=== PATIENT | male | born 1955 | race Caucasian/White ===

== ENCOUNTER → 2017-01-05 | Outpatient (CLI) | payer MEDICAID ==
[2017-01-05 08:39] LABS: Basophils # (A) 0.1 k/uL (0-0.2); Basophils % (A) 0 %; CH 32.4; CHCM 33.4; Eosinophils # (A) 0.1 k/uL (0-0.7); Eosinophils % (A) 1 %; HCT 48.7 % (39.0-53.0); HGB 15.9 gm/dL (13.0-17.5); Luc # (Auto) 0.12; Luc % (Auto) 1; Lymphocytes # (A) 0.7 k/uL (1.0-4.8); Lymphocytes % (A) 7 %; MCH 31.8 pg (25.0-35.0); MCHC 32.6 g/dL (31.0-37.0); MCV 97.3 fL (80.0-100.0); Mean Platelet Volume 7.2; Monocytes # (A) 0.3 k/uL (0-1.0); Monocytes % (A) 3 %; Neutrophils % (A) 88 %; RBC 5.01 m/uL (4.30-5.90); RDW 12.9 % (11.5-15.5); WBC 10.3 k/uL (3.8-10.6); WBC (Perox) 10.58
[2017-01-05 08:51] LABS: ALT 40 U/L (21-72); AST 27 U/L (17-59); Alkaline Phosphatase 83 U/L (38-126); Anion Gap 12 mmol/L; Blood Urea Nitrogen 13 mg/dL (9-20); Calcium 9.8 mg/dL (8.4-10.2); Carbon Dioxide 25 mmol/L (22-30); Chloride 102 mmol/L (98-107); Cholesterol 219 mg/dL (<200); Glucose 158 mg/dL (74-99); HDL Cholesterol 80 mg/dL (40-60); Non-African American GFR(MDRD) >60 (>60 ml/min/1.73 sqM); Potassium 4.3 mmol/L (3.5-5.1); Sodium 139 mmol/L (137-145); Total Bilirubin 0.7 mg/dL (0.2-1.3); Total Protein 7.2 g/dL (6.3-8.2); Triglycerides 93 mg/dL (<150)
== END | disposition home or self-care (01) ==
LOC: LABWHC1 08:00
PROVIDERS: ATTEND Physician Assistant Medical
DX: I10 Essential (primary) hypertension (principal); R06.2 Wheezing; Z72.0 Tobacco use; Z71.6 Tobacco abuse counseling; Z12.5 Encounter for screening for malignant neoplasm of prostate
CPT/HCPCS: 36415; 80053; 80061; 84153; 84443; 85025

== ENCOUNTER → 2017-11-30 | Outpatient (CLI) | payer MEDICAID ==
[2017-11-30 08:16] LABS: Basophils % (A) 0 %; Eosinophils # (A) 0.2 k/uL (0-0.7); Eosinophils % (A) 2 %; HCT 45.3 % (39.0-53.0); HGB 14.7 gm/dL (13.0-17.5); Lymphocytes # (A) 1.2 k/uL (1.0-4.8); Lymphocytes % (A) 15 %; MCH 31.7 pg (25.0-35.0); MCHC 32.3 g/dL (31.0-37.0); Mean Platelet Volume 6.7; Monocytes # (A) 0.4 k/uL (0-1.0); Monocytes % (A) 5 %; Neutrophils # (A) 5.9 k/uL (1.3-7.7); Neutrophils % (A) 76 %; Platelet Count 244 k/uL (150-450); RBC 4.62 m/uL (4.30-5.90); RDW 13.4 % (11.5-15.5); WBC 7.8 k/uL (3.8-10.6)
[2017-11-30 08:22] LABS: ALT 60 U/L (21-72); AST 27 U/L (17-59); Albumin 4.1 g/dL (3.5-5.0); Alkaline Phosphatase 75 U/L (38-126); Anion Gap 9 mmol/L; Blood Urea Nitrogen 20 mg/dL (9-20); Calcium 9.8 mg/dL (8.4-10.2); Carbon Dioxide 28 mmol/L (22-30); Chloride 101 mmol/L (98-107); Glucose 108 mg/dL (74-99); Potassium 4.3 mmol/L (3.5-5.1); Sodium 138 mmol/L (137-145); Total Bilirubin 0.4 mg/dL (0.2-1.3); Total Protein 6.5 g/dL (6.3-8.2)
== END | disposition home or self-care (01) ==
LOC: LABWHC1 07:24
PROVIDERS: ATTEND Internal Medicine Infectious Disease
DX: L03.90 Cellulitis, unspecified (principal)
CPT/HCPCS: 36415; 80053; 85025

== ENCOUNTER 2019-01-10 03:23 | Emergency (ER) | payer MEDICAID ==
[2019-01-10 03:33] VITALS: BP 186/82; TEMP 98.2
[2019-01-10] MEDS ORDERED: ALBUTEROL NEBULIZED 2.5 MG/3 ML INHALATION STA (03:46)
[2019-01-10] MEDS ORDERED: IPRATROPIUM-ALBUTEROL 3 ML NEB INHALATION STA (03:46)
--- NOTE | 2019-01-10 04:24 | XR ---
EXAM: XR Chest, 2 Views CLINICAL HISTORY: TECHNIQUE: Frontal and lateral views of the chest. COMPARISON: No relevant prior studies available. FINDINGS: Lungs: Hyperinflated lungs suggesting COPD. Patchy airspace opacity seen within the lower lungs which may be inflammatory or infectious. Pleural space: Unremarkable. No pneumothorax. Heart: Unremarkable. No cardiomegaly. Mediastinum: Unremarkable. Bones/joints: Degenerative changes of the osseous structures. IMPRESSION: Hyperinflated lungs suggesting COPD. Patchy airspace opacity seen within the lower lungs which may be inflammatory or infectious.
[2019-01-10 04:28] VITALS: RESP 18
[2019-01-10 04:38] VITALS: PULSE 82
[2019-01-10] MEDS ORDERED: AZITHROMYCIN 500 MG TAB PO STA (04:38)
[2019-01-10] MEDS ORDERED: predniSONE 20 MG TAB PO STA (04:40)
--- NOTE | 2019-01-10 04:40 | ED ---
URI HPI - General Chief Complaint: Upper Respiratory Infection Stated Complaint: SOB Time Seen by Provider: 01/10/19 03:39 Source: patient Mode of arrival: ambulatory Limitations: no limitations - History of Present Illness Initial Comments: This patient is a 63-year-old man presenting with cough, wheezing, and some mild dyspnea that is been getting progressively worse over the past number days. No fever or chills. He states the cough is largely nonproductive though occasionally some white to yellowish sputum. No chest pains. No change in urination. No leg pain or swelling. No change in bowel movements. MD Complaint: cough -: days(s) Severity: mild Consistency: constant Improves With: nothing Worsens With: activity Associated Symptoms: cough, shortness of breath - Related Data Home Medications Medication Instructions Recorded Confirmed Atenolol 100 mg PO DAILY 01/10/19 01/10/19 Losartan Potassium 100 mg PO 01/10/19 cloNIDine HCL [Catapres] 0.2 mg PO BID 01/10/19 01/10/19 hydrALAZINE HCL [Apresoline] 50 mg PO BID 01/10/19 01/10/19 Previous Rx's Medication Instructions Recorded Albuterol Inhaler [Ventolin Hfa 1 - 2 puff INHALATION Q6HR PRN #1 01/10/19 Inhaler] inhaler Azithromycin [Zithromax Z-pack] 250 mg PO DIRECTED #6 tab 01/10/19 predniSONE 60 mg PO DAILY #30 tab 01/10/19 Allergies Allergy/AdvReac Type Severity Reaction Status Date / Time No Known Allergies Allergy Verified 01/10/19 03:33 Review of Systems ROS Statement: Those systems with pertinent positive or pertinent negative responses have been documented in the HPI. ROS Other: All systems not noted in ROS Statement are negative. Constitutional: Denies: fever, chills, weakness Respiratory: Reports: cough, dyspnea, wheezes. Denies: hemoptysis Cardiovascular: Denies: chest pain, palpitations, edema, syncope Gastrointestinal: Denies: abdominal pain, melena, hematochezia Genitourinary: Denies: dysuria, hematuria Musculoskeletal: Denies: back pain Skin: Denies: rash Neurological: Denies: headache, weakness, numbness Past Medical History Past Medical History: Hypertension History of Any Multi-Drug Resistant Organisms: None Reported Past Surgical History: Orthopedic Surgery Additional Past Surgical History / Comment(s): R wrist sx Past Psychological History: No Psychological Hx Reported Smoking Status: Current every day smoker Past Alcohol Use History: Daily Past Drug Use History: None Reported General Exam Limitations: no limitations General appearance: alert, in no apparent distress Head exam: Present: atraumatic, normocephalic Eye exam: Present: normal appearance. Absent: scleral icterus, conjunctival injection Neck exam: Present: normal inspection Respiratory exam: Present: normal lung sounds bilaterally, wheezes. Absent: respiratory distress, rales, rhonchi, stridor Cardiovascular Exam: Present: regular rate, normal rhythm, normal heart sounds. Absent: systolic murmur, diastolic murmur, rubs, gallop GI/Abdominal exam: Present: soft. Absent: distended, tenderness, guarding, rebound, rigid Extremities exam: Present: normal inspection, normal capillary refill. Absent: pedal edema, calf tenderness Back exam: Present: normal inspection. Absent: CVA tenderness (R), CVA tenderness (L) Neurological exam: Present: alert Skin exam: Present: warm, dry, intact, normal color. Absent: rash Course Vital Signs 01/10/19 01/10/19 01/10/19 03:28 04:00 04:15 Temperature 98.2 F Pulse Rate 80 90 Respiratory 20 18 20 Rate Blood Pressure 186/82 O2 Sat by Pulse 97 Oximetry 01/10/19 01/10/19 04:27 04:37 Temperature Pulse Rate 92 82 Respiratory 18 18 Rate Blood Pressure O2 Sat by Pulse 96 Oximetry Disposition Clinical Impression: COPD exacerbation, Pneumonia Disposition: HOME SELF-CARE Condition: Fair Instructions (If sedation given, give patient instructions): COPD (Chronic Obstructive Pulmonary Disease) (ED), Pneumonia (ED) Prescriptions: Albuterol Inhaler [Ventolin Hfa Inhaler] 1 - 2 puff INHALATION Q6HR PRN #1 inhaler PRN Reason: Wheezing Azithromycin [Zithromax Z-pack] 250 mg PO DIRECTED #6 tab predniSONE 60 mg PO DAILY #30 tab Is patient prescribed a controlled substance at d/c from ED?: No Referrals: See Moy DO [Primary Care Provider] - 1-2 days
== END 2019-01-10 05:09 | disposition home or self-care (01) ==
LOC: EC 03:23
DX: J44.0 Chronic obstructive pulmonary disease with (acute) lower respiratory infection (principal); J44.1 Chronic obstructive pulmonary disease with (acute) exacerbation; J18.9 Pneumonia, unspecified organism; I10 Essential (primary) hypertension; F17.200 Nicotine dependence, unspecified, uncomplicated; Z79.899 Other long term (current) drug therapy
CPT/HCPCS: 94640; 71046; 99285; 96374; J0696; J7512

== ENCOUNTER → 2019-04-13 | Outpatient (CLI) | payer MEDICAID ==
[2019-04-13 10:08] LABS: Basophils % (A) 1 %; Eosinophils # (A) 0.3 k/uL (0-0.7); Eosinophils % (A) 4 %; HCT 45.3 % (39.0-53.0); HGB 14.3 gm/dL (13.0-17.5); Lymphocytes # (A) 1.7 k/uL (1.0-4.8); Lymphocytes % (A) 25 %; MCH 31.2 pg (25.0-35.0); MCHC 31.5 g/dL (31.0-37.0); MCV 98.9 fL (80.0-100.0); Mean Platelet Volume 6.8; Monocytes # (A) 0.4 k/uL (0-1.0); Monocytes % (A) 6 %; Neutrophils # (A) 4.2 k/uL (1.3-7.7); Neutrophils % (A) 63 %; Platelet Count 256 k/uL (150-450); RBC 4.58 m/uL (4.30-5.90); RDW 13.5 % (11.5-15.5); WBC 6.7 k/uL (3.8-10.6)
[2019-04-13 16:08] LABS: Albumin 4.4 g/dL (3.80-4.90); Albumin/Globulin Ratio 2.32 (1.60-3.17); Anion Gap 5.6 mmol/L (4.00-12.00); Calcium 9.3 mg/dL (8.7-10.3); Carbon Dioxide 26.4 mmol/L (21.6-31.8); Globulin 1.9 g/dL (1.6-3.3); LDL Cholesterol,Calculated 122.8 mg/dL (0.0-131.0); Potassium 5.1 mmol/L (3.5-5.5); Total Bilirubin 0.5 mg/dL (0.2-1.2); Total Protein 6.3 g/dL (6.2-8.2); VLDL Calculation 20.2 mg/dL (5.00-40.00)
== END | disposition home or self-care (01) ==
LOC: LABWHC1 09:32
PROVIDERS: ATTEND Family Medicine
DX: E78.2 Mixed hyperlipidemia (principal)
CPT/HCPCS: 36415; 80053; 80061; 82550; 84443; 85025

== ENCOUNTER 2019-10-09 12:38 | Day surgery (SDC) | payer MEDICAID ==
--- NOTE | 2019-10-08 19:38 | HP ---
HISTORY AND PHYSICAL Mr. Bardales came to the office, referred by Dr. Tito Holliday, for discoloration of the right foot big toe. This patient had some ingrowing nail done and the patient developed discoloration of the right foot big toe for the past 2 weeks. Patient has history of claudication. No rest pain. MEDICAL HISTORY: History of hypertension. No history of diabetes. PERSONAL HISTORY: History of smoking. PHYSICAL EXAMINATION: NECK: Supple. CHEST: Clear on auscultation. First and second sounds are normal. ABDOMEN: Soft, nontender. VASCULAR EXAMINATION: Femorals are 2+. Right foot: patient has posterior tibial, dorsalis pedis by the Doppler. The right big toe had discoloration of the big toe. The patient had a noninvasive study which showed infrapopliteal occlusive disease. PLAN: Aortogram with runoff. Risks and complications were discussed. MMODL / EUSEBION: [id number] /
[~2019-10-09 12:38] MED LIST: ALPRAZolam 0.25 MG TAB PO PRN; ALPRAZolam 0.5 MG TAB PO PRN; ASPIRIN 325 MG TAB PO STA; SODIUM CHLORIDE 0.9% 1,000 ML in EMPTY BAG 1 BAG IV ONE; ZOLPIDEM 5 MG TAB PO PRN
[2019-10-09 13:07] LABS: Basophils % (A) 0 %; Eosinophils # (A) 0.1 k/uL (0-0.7); Eosinophils % (A) 1 %; HCT 44.6 % (39.0-53.0); HGB 15.2 gm/dL (13.0-17.5); Lymphocytes # (A) 1.1 k/uL (1.0-4.8); Lymphocytes % (A) 10 %; MCH 33.6 pg (25.0-35.0); MCHC 34.1 g/dL (31.0-37.0); MCV 98.6 fL (80.0-100.0); Mean Platelet Volume 5.7; Monocytes # (A) 0.3 k/uL (0-1.0); Monocytes % (A) 2 %; Neutrophils # (A) 10.1 k/uL (1.3-7.7); Neutrophils % (A) 86 %; Platelet Count 287 k/uL (150-450); RBC 4.52 m/uL (4.30-5.90); RDW 12.6 % (11.5-15.5); WBC 11.8 k/uL (3.8-10.6)
[2019-10-09 13:17] LABS: Calcium 9.6 mg/dL (8.4-10.2); Potassium 4.3 mmol/L (3.5-5.1)
[2019-10-09] MEDS ORDERED: LIDOCAINE 1% INJ 10MG/ML (20 ML MDV) SQ ONE (13:22)
[2019-10-09] MEDS: MIDAZOLAM 2 MG/2 ML VIAL IV ONE ×2 (13:22→13:39)
[2019-10-09] MEDS ORDERED: IOPAMIDOL-250 100ML BTL INTRAARTER ONE (13:39)
[2019-10-09] MEDS ORDERED: hydrALAZINE HCL 20 MG/ML 1 ML VIAL IV ONE (13:39)
[2019-10-09] MEDS ORDERED: IOPAMIDOL-250 50ML BTL INTRAARTER ONE (13:40)
[2019-10-09] MEDS ORDERED: hydrALAZINE HCL 20 MG/ML 1 ML VIAL ONE (13:59)
[2019-10-09] MEDS ORDERED: ENALAPRILAT 1.25 MG/ML 1 ML VIAL ONE (13:59)
[2019-10-09] MEDS ORDERED: HYDROmorphone 1 MG/ML 1 ML SYRINGE ONE ×2 (14:09→14:33)
[2019-10-09] MEDS ORDERED: HYDROmorphone 1 MG/ML 1 ML SYRINGE IVP PRN (14:34)
[2019-10-09] MEDS ORDERED: hydrALAZINE HCL 20 MG/ML 1 ML VIAL IVP PRN (14:38)
[2019-10-09] MEDS ORDERED: ENALAPRILAT 1.25 MG/ML 1 ML VIAL IVP PRN (14:38)
[2019-10-09] MEDS ORDERED: ACETAMINOPHEN TAB 500 MG TAB PO PRN (15:17)
[2019-10-09] MEDS ORDERED: HYDROcodone/APAP 5-325MG 1 EACH TAB PO PRN (15:17)
[2019-10-09 15:58] VITALS: BMI 26.6
[2019-10-09] MEDS: hydrALAZINE HCL 50 MG TAB PO SCH (20:48)
[2019-10-09] MEDS: cloNIDine HCL 0.2 MG TAB PO SCH (20:48)
[2019-10-09] MEDS ORDERED: hydrALAZINE HCL 50 MG TAB PO SCH (21:00)
--- NOTE | 2019-10-09 22:07 | HP ---
HISTORY AND PHYSICAL CHIEF COMPLAINT: Hypertension. HISTORY OF PRESENT ILLNESS: This 64-year-old gentleman with a past medical history of hypertension, history of DJD, being followed Dr. See Moy in the outpatient setting, had discoloration and possible peripheral vascular disease of the right foot and Dr. Cameron saw the patient, referred the patient to Dr. Muñoz. Dr. Muñoz performed an aortogram with runoff and because of peripheral vascular disease, surgery is being tentatively planned next week by Dr. Muñoz. Blood pressure elevated. No chest pain. No palpitations. No fever. PAST MEDICAL HISTORY: History of hypertension, history of DJD, history of nicotine dependence. MEDICATIONS: Prior to admission, Apresoline 50 mg p.o. b.i.d., losartan 100 mg p.o. daily, atenolol 100 mg p.o. daily, clonidine 0.2 b.i.d. ALLERGIES: None. FAMILY HISTORY: No history of heart disease or strokes in the family. SOCIAL HISTORY: History of smoking. History of alcohol occasionally. REVIEW OF SYSTEMS: ENT: No diminished vision. No diminished hearing. CARDIOVASCULAR: No angina or palpitations. RESPIRATIONS: Occasional cough. GI no nausea or vomiting. no dysuria or hematuria. NERVOUS SYSTEM: No numbness or weakness. ALLERGY/IMMUNOLOGY: No asthma or hayfever. MUSCULOSKELETAL as mentioned earlier. HEMATOLOGY/ONCOLOGY: No history of anemia. ENDOCRINE: No history of diabetes or hypothyroidism. CONSTITUTIONAL: As mentioned earlier. DERMATOLOGY mentioned earlier RHEUMATOLOGY negative. PSYCHIATRY: Negative. PHYSICAL EXAMINATION: Alert and oriented times three. Pulse 64. Blood pressure 181/82, respiration 18, temperature 98.1, pulse ox 98% on room air. HEENT is conjunctivae normal. NECK: No JVD. CARDIOVASCULAR: S1, S2 muffled. RESPIRATORY: Breath sounds diminished in the bases. No rhonchi. No crackles. ABDOMEN: Soft, nontender. No mass palpable. LEGS: No edema. No swelling. NERVOUS SYSTEM: Higher functions as mentioned earlier. Moves all four limbs. No focal deficits. LYMPHATICS: No lymph nodes palpable in the neck, axillae or groin. SKIN: No ulcer, no rash and no bleeding. JOINTS: No active deforming arthropathy. LABS: WBC 11.8, hemoglobin 15.2, glucose 117. ASSESSMENT: 1. Peripheral vascular disease status post aortic runoff for surgery next week per Dr. Muñoz. 2. Increased WBC. 3. Hypertension. 4. History of nicotine dependence. 5. History of degenerative joint disease. 6. FULL CODE. RECOMMENDATIONS AND DISCUSSION: This 61-year-old gentleman who presented with multiple medical issues, at this time, I recommend to continue current medications, management and symptomatic treatment. I recommend increase the dose of hydralazine to 50 mg p.o. t.i.d. Use p.r.n. hydralazine in addition. Otherwise continue the rest of the medications. Smoking cessation has been advised. Further recommendations to follow. A copy of dictation being forwarded to Dr. Moy who is the primary physician. MMISRAELL / IJN: [id number] /
[2019-10-10] MEDS ORDERED: PANTOPRAZOLE 40 MG TABLET PO SCH (07:30)
[2019-10-10] MEDS: cloNIDine HCL 0.2 MG TAB PO SCH (08:44)
[2019-10-10] MEDS: hydrALAZINE HCL 50 MG TAB PO SCH (08:44)
[2019-10-10] MEDS ORDERED: LOSARTAN 50 MG TAB PO SCH (09:00)
[2019-10-10] MEDS ORDERED: ATENOLOL 50 MG TAB PO SCH (09:00)
--- NOTE | 2019-10-10 10:26 | DS ---
DISCHARGE SUMMARY PREOP DIAGNOSIS: Ischemic right foot big toe and fifth toe with occlusion of the bilateral SFA occlusion and infrapopliteal disease. PROCEDURE: Aortogram with runoff. HOSPITAL COURSE: This patient had a aortogram done yesterday. Patient blood pressure was very high, so we kept him overnight. The patient has a history of smoking. The patient is anxious to go home today. Puncture site in the left groin is good and no hematoma noted. Right foot big toe and fifth toe have some discoloration. PLAN: Patient will be going home today. The patient will need intervention to the right lower extremity, which will be arranged. Continue with home medication. Advised to quit smoking. MMODL / IJN: [id number] /
--- NOTE | 2019-10-10 10:58 | P.PN ---
Subjective Patient is admitted for peripheral vascular disease and patient had a CT aortogram which showed facial femoral artery occlusion bilaterally and infra popliteal disease. Patient will follow with Dr. Muñoz as an outpatient. Patient the does have history of hypertension is on multiple medications. Patient blood pressure is fluctuating because of which will increase the dose of hydralazine to 3 times a day 50 mg patient is also on clonidine patient will benefit from calcium channel blockers because of which I'll cut down the clonidine patient heart rate is also low normal. Eventually plan is to discontinue clonidine and if needed will increase Norvasc. Patient will be started on Norvasc and decrease the dose of the clonidine along with hydralazine 3 times daily patient was asked to check the blood pressure 3 times a day and patient was asked to call me back with the blood pressure readings depending on that I will titrate his blood pressure medications. Patient is also on atenolol which will be continued patient in the past did not tolerate diuretics well. Patient had a ischemic right foot big toe and fifth toe Constitutional: Denied any fatigue denied any fever. Cardio vascular: denied any chest pain, palpitations Gastrointestinal denied any nausea vomiting Pulmonary: Denied any shortness of breath cough Neurologic denied any new focal deficits All inpatient medications were reviewed and appropriate changes in these me dications as dictated in the interval history and assessment and plan. Objective - Vital Signs Vital signs: Vital Signs Temp 97.9 F 10/10/19 04:00 Pulse 62 10/10/19 04:00 Resp 16 10/10/19 04:00 BP 169/75 10/10/19 04:00 Pulse Ox 95 10/10/19 04:00 Intake & Output 10/09/19 10/10/19 10/10/19 18:59 06:59 18:59 Intake Total 200 240 Balance 200 240 Weight 85.9 kg Intake: IV 200 Oral 240 Other: Voiding Method Toilet # Voids 1 - Exam PHYSICAL EXAMINATION: GENERAL: The patient is alert and oriented x3, not in any acute distress. Well developed, well nourished. HEENT: Pupils are round and equally reacting to light. EOMI. No scleral icterus. No conjunctival pallor. Normocephalic, atraumatic. No pharyngeal erythema. No th yromegaly. CARDIOVASCULAR: S1 and S2 present. No murmurs, rubs, or gallops. PULMONARY: Chest is clear to auscultation, no wheezing or crackles. ABDOMEN: Soft, nontender, nondistended, normoactive bowel sounds. No palpable organomegaly. MUSCULOSKELETAL: No joint swelling or deformity. EXTREMITIES: No cyanosis, clubbing, or pedal edema. NEUROLOGICAL: Gross neurological examination did not reveal any focal deficits. SKIN: No rashes. - Labs CBC & Chem 7: 10/09/19 13:00 10/09/19 13:00 Labs: Abnormal Lab Results - Last 24 Hours (Table) 10/09/19 10/09/19 Range/Units 13:00 13:00 WBC 11.8 H (3.8-10.6) k/uL Neutrophils # 10.1 H (1.3-7.7) k/uL Glucose 117 H (74-99) mg/dL Assessment and Plan Plan: Peripheral vascular disease: CT aortogram as mentioned above patient will follow-up with Lisa as an outpatient Line-hypertension further management as mentioned above leukocytosis reactive -Nicotine dependence: counseling was provided
[2019-10-10 11:06] VITALS: BP 150/64; PULSE 79; RESP 20; TEMP 97.8
--- NOTE | 2019-10-10 18:53 | OP ---
OPERATIVE REPORT PREOPERATIVE DIAGNOSIS: Ischemic right foot, big and fifth toe. PROCEDURE: Aortogram with runoff. This patient had history of discoloration of the big toe and fifth toe. The patient had a noninvasive study in the office which showed SFA and infrapopliteal occlusive disease. The patient was brought to the labor law professor. Right and left groin was prepped and draped in usual sterile manner. Ultrasound-guided micropuncture into the right common femoral artery. Micropuncture guidewire was passed and 4-Italian dilator advanced on the top of the guidewire. Then we passed a guidewire and exchanged for the 5-Italian sheath. Flushed with heparin and saline. Then the guide was parked into the aorta and a pigtail catheter advanced on top of the guidewire. An aortogram flush was obtained. The aorta was found to be patent. The common iliac artery, right and left common iliac artery was found to be patent. External iliac artery, right and left external iliac artery was found to be patent. Common femoral artery, right and left common femoral artery was found to be patent. Profunda was visualized bilaterally. Superficial femoral artery had an occlusion on the right side and reconstitutes above the knee and left side also has an occlusion of the superficial femoral artery which reconstituted above the knee. Multiple collaterals were seen. The patient's right side, patient's tibioperoneal trunk is occluded. Anterior tibial, posterior tibial is occluded, reconstituted at the ankle of the posterior tibial and the left side, patient has anterior tibial is patent. Popliteal is patent. The catheter sheath was removed. The patient tolerated the procedure well and transferred to the recovery room in satisfactory condition. MMODL / IJN: [id number] /
--- NOTE | 2019-10-12 08:23 | IR ---
Fluoroscopy HISTORY: Pain in right big toe 2.4 minutes fluoroscopy time supplied to the referring clinician. 286 intraoperative C-arm images do cument the procedure. See dictated report from vascular surgery.
== END 2019-10-10 11:02 | disposition home or self-care (01) ==
LOC: CATHCVL 12:38 → 3SCARD 13:40 → CATHCVL 10-10 11:02
PROVIDERS: ATTEND Surgery Vascular Surgery
DX: I70.213 Atherosclerosis of native arteries of extremities with intermittent claudication, bilateral legs (principal); D72.829 Elevated white blood cell count, unspecified; I10 Essential (primary) hypertension; M19.90 Unspecified osteoarthritis, unspecified site; F17.200 Nicotine dependence, unspecified, uncomplicated; Z79.899 Other long term (current) drug therapy; Z86.79 Personal history of other diseases of the circulatory system
CPT/HCPCS: 36200; 75625; 75716; 76937; 80048; 85025; C1769 ×4; C1894; J2250; J0360; J2001; J1170; Q9966 ×2

== ENCOUNTER → 2019-10-13 | Day surgery (SDC) | payer MEDICAID ==
[2019-10-12 13:17] VITALS: BMI 23.6
[~2019-10-13] MED LIST changes: -ALPRAZolam 0.25 MG TAB PO PRN; -ALPRAZolam 0.5 MG TAB PO PRN; -ASPIRIN 325 MG TAB PO STA; +ASPIRIN 81 MG PO SCH; +CLOPIDOGREL 75 MG TAB PO ONE; +CLOPIDOGREL 75 MG TAB PO SCH; +ENALAPRILAT 1.25 MG/ML 1 ML VIAL IV ONE; +HEPARIN SODIUM 1,000 UN/ML (10ML VL) IV ONE; +HYDROmorphone 1 MG/ML 1 ML SYRINGE IVP ONE; +IOPAMIDOL-250 100ML BTL INTRAARTER ONE; +LIDOCAINE 1% INJ 10MG/ML (20 ML MDV) SQ ONE; +MIDAZOLAM 2 MG/2 ML VIAL IVP ONE; +PRAVASTATIN SODIUM 40 MG TAB PO SCH; +SODIUM CHLORIDE 0.9% 1,000 ML IV ONE; -SODIUM CHLORIDE 0.9% 1,000 ML in EMPTY BAG 1 BAG IV ONE; -ZOLPIDEM 5 MG TAB PO PRN; +fentaNYL (PF) 50 MCG/ML 2 ML AMP IVP ONE; +fentaNYL (PF) 50 MCG/ML 2 ML AMP ONE; +hydrALAZINE HCL 20 MG/ML 1 ML VIAL IV ONE
[2019-10-13 10:33] VITALS: TEMP 97.9
[2019-10-13 10:56] LABS: Basophils # (A) 0.1 k/uL (0-0.2); Basophils % (A) 1 %; Eosinophils # (A) 0.3 k/uL (0-0.7); Eosinophils % (A) 3 %; HCT 43.4 % (39.0-53.0); HGB 14.6 gm/dL (13.0-17.5); Lymphocytes # (A) 1.5 k/uL (1.0-4.8); Lymphocytes % (A) 16 %; MCH 33.1 pg (25.0-35.0); MCHC 33.7 g/dL (31.0-37.0); MCV 98.3 fL (80.0-100.0); Mean Platelet Volume 5.7; Monocytes # (A) 0.4 k/uL (0-1.0); Monocytes % (A) 4 %; Neutrophils % (A) 74 %; Platelet Count 253 k/uL (150-450); RBC 4.42 m/uL (4.30-5.90); RDW 12.3 % (11.5-15.5); WBC 9.4 k/uL (3.8-10.6)
[2019-10-13 11:31] LABS: Calcium 9.3 mg/dL (8.4-10.2)
[2019-10-13 11:34] LABS: Potassium 5.7 mmol/L (3.5-5.1)
--- NOTE | 2019-10-13 13:58 | P.OP ---
Date of Procedure: 10/13/19 Preoperative Diagnosis: #1 Right lower extremity nonhealing great toe wound. #2 right lower extremity critical limb ischemia. #3 right superficial femoral artery [employer]SPAPER PEDDLER with tibial peroneal trunk [employer]SP[employer]ER PEDDLER Postoperative Diagnosis: Same Procedure(s) Performed: #1 ultrasound-guided left common femoral artery access. #2 Right lower extremity selective angiogram #3 right lower extremity SFA atherectomy with Hawk one device #4 right lower extremity percutaneous transluminal balloon angioplasty with 5 x 250mm #5 right lower extremity superficial femoral artery 6 x 40 mm EV 3 stent Anesthesia: local, other (Moderate sedation 95 minutes) Surgeon: Chris Roper Estimated Blood Loss (ml): 5 IV fluids (ml): 400 Pathology: none sent Condition: stable Disposition: PACU Indications for Procedure: 64-year-old gentleman who initially presented to Dr. Muñoz's office with right great toe wound that has been ongoing for the last couple weeks without improvement or healing. He underwent angiogram that demonstrated right superficial femoral artery occlusion just after the takeoff with reconstitution of above-knee popliteal. There was also diminished blood flow distal to the knee with occlusion of the TPT with reconstitution of the AT and PT. He presents today for right lower extremity revascularization. Description of Procedure: After written informed consent was obtained the patient all risks benefits competitions were described the patient is brought to the Relay Engineer laid in a supine position the area of the groins were prepped and draped in usual sterile fashion. Conscious sedation was performed with continuous pulse ox and EKG monitoring. Right lower extremity selective angina gram was obtained demonstrating NEWSPAPER PEDDLER of the SFA just after the takeoff with reconstitution above- knee popliteal. 035 Glidewire advantage was then placed across the iliac bifurcation followed by a 7-[place] RAABE sheath. Patient was administered heparin and followed with serial ACTs. Utilizing a 035 Glidewire advantage followed by a quick cross catheter the NEWSPAPER PEDDLER was crossed. The catheter was then placed across the lesion distally at the popliteal and selective and gram was obtained demonstrating good visualization of intraluminal access. 5 spider filter was then placed at the knee and quick cross catheter was removed. Atherectomy was then performed with Hawk one device with multiple passes throughout the entirety of the SFA. Angiogram was then obtained demonstrating good intraluminal gain. A 5 x 250 mm balloon was then placed across the lesion and balloon angioplasty was performed. There was a dissection noted at the pr oximal aspect of the SFA and therefore another balloon angioplasty was performed with a long inflation. Dissection flap was not controlled and therefore a 6 x 40 mm stent was placed. Final angiogram was obtained demonstrating good brisk flow throughout the SFA with TPT occlusion with reconstitution below the knee with two-vessel runoff to the ankle. All guidewires and catheters were removed. Patient was administered protamine to help with hemostasis. Sheath was removed hemostasis was achieved and patient was sent to PACU for recovery. Plan - Discharge Summary Discharge Rx Participant: No New Discharge Prescriptions: No Action Atenolol 100 mg PO DAILY Losartan Potassium 100 mg PO HS hydrALAZINE HCL [Apresoline] 50 mg PO TID #0 amLODIPine BESYLATE [Norvasc] 5 mg PO DAILY #30 tablet cloNIDine HCL [Catapres] 0.1 mg PO BID #20 tab Discharge Medication List Atenolol 100 mg PO DAILY 01/10/19 [History] Losartan Potassium 100 mg PO HS 01/10/19 [History] amLODIPine BESYLATE [Norvasc] 5 mg PO DAILY #30 tablet 10/10/19 [Rx] cloNIDine HCL [Catapres] 0.1 mg PO BID #20 tab 10/10/19 [Rx] hydrALAZINE HCL [Apresoline] 50 mg PO TID #0 10/10/19 [Rx] Discharge Disposition: HOME SELF-CARE
[2019-10-13 15:36] VITALS: RESP 16
--- NOTE | 2019-10-13 15:41 | IR ---
Fluoroscopy HISTORY: Pain in right big toe 21.6 minutes fluoroscopy time supplied to the referring clinician. 852 intraoperative C-arm images d ocument the procedure. See dictated report from vascular surgery.
[2019-10-13 17:37] VITALS: BP 147/70; PULSE 67
== END | disposition home or self-care (01) ==
LOC: CATHCVL 10:14
PROVIDERS: ATTEND Surgery
DX: I70.201 Unspecified atherosclerosis of native arteries of extremities, right leg (principal); S91.101A Unspecified open wound of right great toe without damage to nail, initial encounter; I99.8 Other disorder of circulatory system; X58.XXXA Exposure to other specified factors, initial encounter
CPT/HCPCS: 37227; 80048; 85025; C1894; C1769 ×2; C1887; C1876; C1725; C1714; C1884; J2250; J0360; J2001; J3010; J1644; J1170; Q9966

== ENCOUNTER → 2019-10-20 | Outpatient (CLI) | payer MEDICAID ==
[2019-10-20 17:22] LABS: Basophils % (A) 0 %; Eosinophils # (A) 0.2 k/uL (0-0.7); Eosinophils % (A) 3 %; HCT 38.8 % (39.0-53.0); HGB 12.9 gm/dL (13.0-17.5); Lymphocytes # (A) 1.8 k/uL (1.0-4.8); Lymphocytes % (A) 21 %; MCH 33.1 pg (25.0-35.0); MCHC 33.2 g/dL (31.0-37.0); MCV 99.8 fL (80.0-100.0); Mean Platelet Volume 5.6; Monocytes # (A) 0.5 k/uL (0-1.0); Monocytes % (A) 5 %; Neutrophils % (A) 69 %; Platelet Count 330 k/uL (150-450); RBC 3.89 m/uL (4.30-5.90); RDW 12.5 % (11.5-15.5); WBC 8.7 k/uL (3.8-10.6)
[2019-10-20 17:35] LABS: Potassium 4.2 mmol/L (3.5-5.1)
== END | disposition home or self-care (01) ==
LOC: LABPAT 16:44
PROVIDERS: ATTEND Surgery
DX: Z01.812 Encounter for preprocedural laboratory examination (principal); I70.245 Atherosclerosis of native arteries of left leg with ulceration of other part of foot
CPT/HCPCS: 36415; 80051; 82565; 84520; 85025

== ENCOUNTER 2019-10-23 10:36 | Day surgery (SDC) | payer MEDICAID ==
[2019-10-21 16:06] VITALS: BMI 24.9
[~2019-10-23 10:36] MED LIST changes: +ALPRAZolam 0.25 MG TAB PO PRN; +ASPIRIN 325 MG TAB PO STA; -ASPIRIN 81 MG PO SCH; -CLOPIDOGREL 75 MG TAB PO ONE; -CLOPIDOGREL 75 MG TAB PO SCH; -ENALAPRILAT 1.25 MG/ML 1 ML VIAL IV ONE; -HEPARIN SODIUM 1,000 UN/ML (10ML VL) IV ONE; -HYDROmorphone 1 MG/ML 1 ML SYRINGE IVP ONE; -IOPAMIDOL-250 100ML BTL INTRAARTER ONE; -LIDOCAINE 1% INJ 10MG/ML (20 ML MDV) SQ ONE; -MIDAZOLAM 2 MG/2 ML VIAL IVP ONE; -PRAVASTATIN SODIUM 40 MG TAB PO SCH; -SODIUM CHLORIDE 0.9% 1,000 ML IV ONE; +SODIUM CHLORIDE 0.9% 1,000 ML in EMPTY BAG 1 BAG IV ONE; -fentaNYL (PF) 50 MCG/ML 2 ML AMP IVP ONE; -fentaNYL (PF) 50 MCG/ML 2 ML AMP ONE; -hydrALAZINE HCL 20 MG/ML 1 ML VIAL IV ONE
[2019-10-23] MEDS ORDERED: LIDOCAINE 1% INJ 10MG/ML (20 ML MDV) SQ ONE ×2 (12:05→12:09)
[2019-10-23] MEDS ORDERED: fentaNYL (PF) 50 MCG/ML 2 ML AMP IV ONE (12:13)
[2019-10-23] MEDS ORDERED: MIDAZOLAM 2 MG/2 ML VIAL IV ONE (12:14)
[2019-10-23] MEDS ORDERED: hydrALAZINE HCL 20 MG/ML 1 ML VIAL IV ONE (12:14)
[2019-10-23] MEDS: HEPARIN SODIUM 1,000 UN/ML (10ML VL) IV ONE ×2 (12:17→13:50)
[2019-10-23] MEDS: fentaNYL (PF) 50 MCG/ML 2 ML AMP IV ONE ×2 (12:42→13:11)
[2019-10-23] MEDS: MIDAZOLAM 2 MG/2 ML VIAL IV ONE ×2 (12:42→14:33)
[2019-10-23] MEDS ORDERED: SODIUM CHLORIDE 0.9% 500 ML 500 ML with niCARdipine 6.25 MG, NITROGLYCERIN-D5W PMX 0.05... IV ONE ×8 (13:06→15:02)
[2019-10-23] MEDS ORDERED: HYDROmorphone 1 MG/ML 1 ML SYRINGE IVP ONE ×2 (13:21→14:02)
[2019-10-23] MEDS ORDERED: LIDOCAINE URO-JET JELLY 2% 5 ML KIT ONE (14:46)
[2019-10-23] MEDS ORDERED: MIDAZOLAM 2 MG/2 ML VIAL IVP ONE (15:26)
[2019-10-23] MEDS ORDERED: IOPAMIDOL-250 100ML BTL INTRAARTER ONE (15:55)
[2019-10-23] MEDS ORDERED: hydrALAZINE HCL 20 MG/ML 1 ML VIAL IVP ONE (16:10)
[2019-10-23] MEDS ORDERED: CLOPIDOGREL 75 MG TAB PO ONE (16:13)
[2019-10-23] MEDS ORDERED: HYDROcodone/APAP 5-325MG 1 EACH TAB PO PRN (16:39)
--- NOTE | 2019-10-23 16:50 | IR ---
Fluoroscopy HISTORY: Peripheral vascular disease 69.8 minutes fluoroscopy time supplied to the referring clinician. 2037 intraoperative C-arm images document the procedure. See dictated report from vascular surgery.
--- NOTE | 2019-10-23 17:22 | P.OP ---
Date of Procedure: 10/23/19 Preoperative Diagnosis: Right lower extremity critical limb ischemia with fifth toe ulcer Postoperative Diagnosis: 1. Right lower extremity critical limb ischemia with fifth toe ulcer 2. Right superficial femoral artery occlusive disease 3. 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 Procedure(s) Performed: #1 ultrasound-guided left common femoral artery access #2 selective right lower extremity femoral popliteal angiogram #3 ultrasound-guided right anterior tibial artery retrograde access #4 percutaneous atherectomy of the right anterior tibial artery #5 percutaneous transluminal balloon angioplasty of the superficial femoral artery, popliteal artery #6 percutaneous transluminal balloon angioplasty of the anterior tibial artery #7 percutaneous transluminal stenting of the right superficial femoral artery and proximal popliteal artery Anesthesia: local, other (Moderate conscious sedation 3 hours 52 minutes) Surgeon: Chris Roper Estimated Blood Loss (ml): 10 Pathology: none sent Condition: stable Disposition: floor Indications for Procedure: 64-year-old gentleman with history of lower extremity toe discoloration and ischemia presented to the office after a previous right superficial femoral artery atherectomy and balloon angioplasty with stenting complaining of more severe pain in his right foot and toes. He also was complaining of new onset wounds at his fifth toe which was not there previously. He was having rest pain and could not sleep approximately 48 hours after his previous surgery. He underwent arterial Doppler and ABIs were 0.3 on the right consisting of critical limb ischemia. He presents today for selective angiogram and possible revascularization. Operative Findings: Total occlusion of the right superficial femoral artery just after the takeoff extending into the stent. There was also a dissection flap noted at Jeffy's canal at an area of calcification. Anterior tibial artery and posterior tibial artery were occluded with reconstitution at the lower leg with two-vessel runoff to the ankle. Description of Procedure: After written informed consent was obtained the patient all risks benefits competitions were described the patient is brought to the Drawer In St[employer] Machine laid in a supine position. The area of the groins and right leg to the foot were prepped and draped in usual sterile fashion. Utilizing ultrasound the common femoral artery on the left was visualized and shown to be patent without any significant calcification. Multipurpose needle and Seldinger technique was then utilized and a 5-Palauan sheath was placed and patient was administered heparin and followed with ACTs. 035 Glidewire was then placed followed by a rim catheter and the right common iliac artery was accessed. Angiogram of the right lower extremity femoral artery was then obtained demonstrating sharp cutoff of the superficial femoral artery where a complete occlusion was noted which appeared to be a dissection flap. This occlusion extended to Jeffy's canal. 035 Glidewire advantage was then placed into the profundus femoris and the 5-Palauan sheath was removed from the left common femoral artery. A 7-Palauan RAABE sheath was then placed just above the superficial femoral artery. 035 Glidewire was then guided into the superficial femoral artery and utilizing a quick cross catheter the dissection flap was crossed and the wire was placed within the existing stent. The wire was then attempted to be placed across the distal superficial femoral artery lesion. Quick cross catheter was taken down to this area and there was continued dissection and utilizing multiple wires and catheters attempt was placed across this lesion with out success. Multiple selective angiograms were obtained demonstrating a complete dissection flap and severe calcification at the distal SFA with reconstitution of the popliteal artery and tibial arteries just distal to anterior tibial and posterior tibial artery occlusions. At that time was determined to access the anterior tibial artery and in a retrograde fashion attempt to cross the lesion. Utilizing ultrasound the anterior tibial artery was located and shown to be patent. Utilizing a micro-access kit the anterior tibial artery was cannulated and utilizing Seldinger technique a 4-Palauan sheath was placed. Retrograde angiogram was obtained demonstrating good visualization of the anterior tibial artery with severe occlusive disease noted up to the tibioperoneal trunk. 014 Glidewire advantage was then placed followed by an 014 crossing catheter and the anterior tibial artery MANAGER GYN was crossed. Glidewire was then placed across the superficial femoral artery occlusion/dissection flap and the wire and catheter were placed into the common femoral artery. Femoral angiogram was obtained demonstrating good visualization of intraluminal access. 014 wire was left in place and attention was then placed to the anterior tibial artery. A 5/6-Palauan sheath was placed after removal of the existing 4-Palauan sheath. A 6-Palauan Hawk one device was then utilized and atherectomy was performed with 2 passes of the anterior tibial artery. Angiogram was obtained after atherectomy demonstrating good visualization of intraluminal gain. Attention was then placed to the superficial femoral artery. 035 quick cross catheter was placed over the existing 014 wire up to the femoral artery and the wire was removed and replaced with an 035 Glidewire advantage. Balloon angioplasty with a 5 x 200 mm balloon was utilized to cross the superficial femoral artery and extending to the popliteal artery. Angiogram was obtained demonstrating improved lumen. At this time was determined to place stents to keep the dissection flaps open. A 6 x 150 mm Medtronic stent 2 was placed within the superficial femoral artery as well as a 6 x 100 mm Medtronic stent into the popliteal artery. Balloon angioplasty was once again performed and final angiogram was obtained demonstrating good brisk flow throughout the superficial femoral artery extending to the anterior tibial artery and towards the foot. Guidewires and catheters were removed from the anterior tibial artery after balloon angioplasty was performed with a 3 x 80 mm balloon for the anterior tibial artery. Attention was then placed to try to cross the posterior tibial artery from an antegrade fashion. Multiple wires and catheters were attempted without success and therefore this part of the procedure was abandoned. Final angiogram demonstrated good brisk flow throughout the superficial femoral artery extending to the anterior tibial artery with good collateralization to the peroneal and posterior tibial artery to the foot. Patient has a palpable pulse within the anterior tibial artery and dorsalis pedis artery. All guidewires and catheters were removed sheaths were removed and pressure was placed for hemostasis. Patient all procedure well had a palpable DP pulse at the conclusion of the procedure
[2019-10-23 17:48] LABS: Basophils # (A) 0.1 k/uL (0-0.2); Basophils % (A) 1 %; Eosinophils # (A) 0.3 k/uL (0-0.7); Eosinophils % (A) 3 %; HCT 42.4 % (39.0-53.0); HGB 14.3 gm/dL (13.0-17.5); Lymphocytes # (A) 1.7 k/uL (1.0-4.8); Lymphocytes % (A) 17 %; MCH 33.3 pg (25.0-35.0); MCHC 33.7 g/dL (31.0-37.0); Monocytes # (A) 0.5 k/uL (0-1.0); Monocytes % (A) 5 %; Neutrophils # (A) 7.5 k/uL (1.3-7.7); Neutrophils % (A) 74 %; Platelet Count 341 k/uL (150-450); RBC 4.28 m/uL (4.30-5.90); RDW 12.4 % (11.5-15.5); WBC 10.2 k/uL (3.8-10.6)
[2019-10-23 18:29] LABS: African American GFR (CKD) >90 (>60 ml/min/1.73 sqM); Anion Gap 8 mmol/L; Blood Urea Nitrogen 17 mg/dL (9-20); Calcium 9.1 mg/dL (8.4-10.2); Carbon Dioxide 23 mmol/L (22-30); Chloride 107 mmol/L (98-107); Glucose 111 mg/dL (74-99); Non-African American GFR(CKD) >90 (>60 ml/min/1.73 sqM); Potassium 4.2 mmol/L (3.5-5.1); Sodium 138 mmol/L (137-145)
[2019-10-23] MEDS ORDERED: SODIUM CHLORIDE 0.9% 1,000 ML IV SCH (19:15)
[2019-10-23] MEDS: cloNIDine HCL 0.1 MG TAB PO SCH (20:43)
[2019-10-23] MEDS: GABAPENTIN 300 MG CAP PO SCH (20:44)
[2019-10-23] MEDS: hydrALAZINE HCL 50 MG TAB PO SCH (20:44)
[2019-10-23] MEDS ORDERED: LOSARTAN 50 MG TAB PO SCH (21:00)
[2019-10-23] MEDS ORDERED: TEMAZEPAM 15 MG CAP PO PRN (23:08)
[2019-10-24] MEDS ORDERED: HYDROmorphone 0.5 MG/0.5 ML SYRINGE IVP PRN (00:03)
[2019-10-24 07:00] VITALS: RESP 18
[2019-10-24 07:07] LABS: African American GFR (CKD) >90 (>60 ml/min/1.73 sqM); Non-African American GFR(CKD) 79 (>60 ml/min/1.73 sqM)
[2019-10-24] MEDS: hydrALAZINE HCL 50 MG TAB PO SCH (08:10)
[2019-10-24] MEDS: GABAPENTIN 300 MG CAP PO SCH (08:11)
[2019-10-24] MEDS: cloNIDine HCL 0.1 MG TAB PO SCH (08:11)
--- NOTE | 2019-10-24 08:23 | P.PN ---
Subjective Progress Note Date: 10/24/19 Patient is evaluated today status post percutaneous revascularization of the right lower extremity. The patient continues to have neuropathic/revascularization type of discomfort in his right first and fifth toes. He otherwise is without complaint. Physical examination revealed the puncture site to be clean, dry and unremarkable. Palpable dorsalis pedis and posterior tibial pulses are intact on the right. There is no leg edema. Toes are movable. There is some tenderness to palpation of the first and fifth toes however no open wound is noted. Vital long discussion with the patient and his in reference to the patient's pain of the toes and as to whether or not any further tissue loss will occur. It is my opinion that eventually both the first and fifth toes will heal and otherwise unremarkable manner. This will take time. All questions were answered to patient and spouse satisfaction. Patient is stable for discharge. He is allowed to shower over his wounds. He is to continue taking his home medications which include a statin, aspirin and Plavix. He is asked follow-up with Dr. Roper in the office in 2 weeks. Prescription for Percocet was given to the patient. He is asked to avoid any L tobacco products he is asked to avoid weightbearing on the right forefoot Objective - Vital Signs Vital signs: Vital Signs Temp 98.2 F 10/24/19 04:00 Pulse 76 10/24/19 04:00 Resp 18 10/24/19 04:00 BP 110/59 10/24/19 04:00 Pulse Ox 96 10/24/19 04:00 Intake & Output 10/23/19 10/24/19 10/24/19 18:59 06:59 18:59 Intake Total 350 1000 Output Total 350 1400 Balance 0 -400 Weight 85.2 kg Intake: IV 350 Intake, IV Titration 1000 Amount Sodium Chloride 0.9% 1, 1000 000 ml @ 125 mls/hr IV . Q8H KOMAL Rx#:[id number] Output: Urine 350 1400 Other: Voiding Method Urinal # Voids 7 - Labs CBC & Chem 7: 10/23/19 17:35 10/24/19 06:03 Labs: Abnormal Lab Results - Last 24 Hours (Table) 10/23/19 10/23/19 Range/Units 17:35 17:35 RBC 4.28 L (4.30-5.90) m/uL Glucose 111 H (74-99) mg/dL
[2019-10-24] MEDS ORDERED: NICOTINE 14MG/24HR PATCH TRANSDERM SCH (09:00)
[2019-10-24] MEDS ORDERED: ATENOLOL 50 MG TAB PO SCH (09:00)
[2019-10-24] MEDS ORDERED: CLOPIDOGREL 75 MG TAB PO SCH ×2 (09:00)
[2019-10-24] MEDS ORDERED: ASPIRIN 81 MG PO SCH ×2 (09:00)
[2019-10-24] MEDS ORDERED: amLODIPine 5 MG TAB PO SCH (09:00)
[2019-10-24 10:08] VITALS: BP 135/70; PULSE 79; TEMP 98.6
--- NOTE | 2019-10-24 10:50 | CONS ---
CONSULTATION DATE OF SERVICE: 10/23/2019 REASON FOR CONSULTATION: Regarding peripheral vascular disease and other medical issues requested by Dr. Roper. HISTORY OF PRESENT ILLNESS: This 64-year-old gentleman with a past medical history of multiple medical problems including hypertension, history of a bolus pemphigoid, history of DJD being followed by Dr. See Moy in the outpatient setting, recently found to have peripheral vascular disease on the right side. The patient had nonhealing ulcers of the right foot. Initially the patient underwent a superficial femoral artery atherectomy and stenting, but because of lack of improvement, persistence rest pains and presence of new ulcers, Dr. Roper performed percutaneous arthrectomy of the right anterior tibial artery and as well as PTB of the superficial femoral artery popliteal artery and as well as stenting of the right superficial femoral artery and proximal popliteal artery. Please refer Dr. Roper's detailed notes for further information. The patient is complaining of some the pain in the foot at this time. There is no history of fever, rigors or chills. No history of headache, loss of consciousness or seizures, chest pain, palpitations, hematochezia or melena at this time. PAST MEDICAL HISTORY: Hypertension, bolus pemphigoid, history of DJD. MEDICATIONS: Prior to admission include home medications are: 1. Atenolol 100 mg daily. 2. Apresoline 50 mg t.i.d. 3. Clonidine 0.1 b.i.d. 4. Norvasc 5 mg p.o. daily. 5. Losartan 100 mg q.h.s. 6. Gabapentin 300 mg t.i.d. 7. Aspirin 81 mg daily. 8. Plavix 75 mg p.o. daily. ALLERGIES: None. FAMILY HISTORY: History of cancer in the family. SOCIAL HISTORY: Previous history of smoking. Occasional alcohol intake. REVIEW OF SYSTEMS: ENT: No diminished vision. No diminished hearing. CARDIOVASCULAR: No angina or palpitations. RESPIRATION: No cough. GI no nausea or vomiting. no dysuria. NERVOUS SYSTEM: No numbness or weakness. ALLERGY/IMMUNOLOGY: No asthma or hayfever. MUSCULOSKELETAL as mentioned earlier. HEMATOLOGY/ONCOLOGY: No history of anemia. ENDOCRINE: No history of diabetes or hypothyroidism. CONSTITUTIONAL: As mentioned earlier. DERMATOLOGY: Negative. RHEUMATOLOGY negative. PSYCHIATRY as mentioned earlier. PHYSICAL EXAM: Patient is alert, oriented x3. Pulse is 81, blood pressure 130/61, respiration 18, temperature 98.2, pulse ox 98% on room air. HEENT: Conjunctivae normal. Oral mucosa moist. NECK is no jugular venous distention. No carotid bruit. No lymph node enlargement. CARDIOVASCULAR system: S1, S2 muffled. RESPIRATORY: Breath sounds diminished in the bases. No rhonchi. No crackles. ABDOMEN: Soft, nontender. LEGS: Right leg ulcer and status post surgery. NERVOUS SYSTEM: Higher functions as mentioned earlier. Moves all 4 limbs. No focal motor or sensory deficits. LYMPHATICS: No lymph nodes palpable in the neck, axillae or groin. SKIN: No ulcer, rash or bleeding. JOINTS: No active deforming arthropathy. LABS: WBC 10.2, hemoglobin 14.3, glucose 111. ASSESSMENT: 1. Status post percutaneous arthrectomy of the right anterior tibial artery and angioplasty of the superficial femoral artery and popliteal artery. 2. Right lower extremity critical limb ischemia with 5th toe ulcer and right superficial femoral artery occlusive disease. 3. Continued ongoing nicotine dependence. 4. History of hypertension, history of autoimmune disease, bullous pemphigoid. RECOMMENDATION: In this 64-year-old gentleman who presented with multiple medical issues, at this time, I recommend to continue current medications, management and symptomatic treatment. Resume the home medications. Antiplatelet agents. DVT prophylaxis. Symptomatic treatment of the pain. Follow the patient closely with you and patient may be asked to follow up with Dr. Moy closely after discharge. Thank you Dr. Roper for letting us participate in the care of this patient. MMODL / IJN: [id number] /
== END 2019-10-24 11:15 | disposition home or self-care (01) ==
LOC: CATHCVL 10:36 → 3SCARD 16:37 → CATHCVL 10-24 11:15
PROVIDERS: ATTEND Surgery
DX: I70.203 Unspecified atherosclerosis of native arteries of extremities, bilateral legs (principal); L97.519 Non-pressure chronic ulcer of other part of right foot with unspecified severity; I10 Essential (primary) hypertension; L12.0 Bullous pemphigoid; M19.90 Unspecified osteoarthritis, unspecified site; Z80.9 Family history of malignant neoplasm, unspecified; Z79.02 Long term (current) use of antithrombotics/antiplatelets; Z79.82 Long term (current) use of aspirin; Z79.899 Other long term (current) drug therapy
CPT/HCPCS: 37226; 37229; 80048; 82565; 85025; C1894 ×3; C1725 ×2; C1769 ×5; C1887; C1876 ×2; C1714; J2250; J0360; J1644 ×2; J2001; J3010; J1170; Q9966

== ENCOUNTER → 2019-11-03 | Outpatient (CLI) | payer MEDICAID ==
--- NOTE | 2019-11-04 07:39 | XR ---
EXAMINATION TYPE: XR foot complete RT DATE OF EXAM: 11/03/2019 CLINICAL HISTORY: Fifth toe pain concern for osteomyelitis. TECHNIQUE: Frontal, lateral, and oblique images of the right foot are obtained. COMPARISON: None FINDINGS: There is no acute fracture/dislocation evident in the right foot. The joint spaces in the right foot appear aligned with hypertrophic osseous change and joint space narrowing in the distal i nterphalangeal joints and osseous spurring of the navicular. No periosteal reaction or cortical erosi on seen. Moderate plantar and large Achilles heel spurs. Soft tissue swelling of the fifth digit is s een. IMPRESSION: Soft tissue swelling of the fifth digit without subcutaneous emphysema, cortical erosion or periostea l reaction at this time. Three-phase nuclear medicine bone scan could ensure no osteomyelitis if ther e is further clinical concern.
== END | disposition home or self-care (01) ==
LOC: RADXRMAIN 16:09
PROVIDERS: ATTEND Surgery
DX: M79.89 Other specified soft tissue disorders (principal)

== ENCOUNTER → 2021-02-10 | Outpatient (CLI) | payer MEDICAID ==
[2021-02-10 19:23] LABS: Basophils # (A) 0.04 X 10*3/uL (0.00-0.10); Basophils % (A) 0.5 %; Eosinophils # (A) 0.24 X 10*3/uL (0.04-0.35); Eosinophils % (A) 2.8 %; HCT 40.5 % (39.6-50.0); Lymphocytes # (A) 1.54 X 10*3/uL (0.90-5.00); MCH 30.9 pg (27.0-32.0); MCHC 32.1 g/dL (32.0-37.0); MCV 96.2 fL (80.0-97.0); Mean Platelet Volume 9.4 fL (9.5-12.2); Monocytes # (A) 0.55 X 10*3/uL (0.20-1.00); Monocytes % (A) 6.4 %; Neutrophils # (A) 6.15 X 10*3/uL (1.80-7.70); Neutrophils % (A) 71.9 %; Platelet Count 285 X 10*3/uL (140-440); RBC 4.21 X 10*6/uL (4.40-5.60); RDW 12.9 % (11.5-14.5); WBC 8.55 X 10*3/uL (4.50-10.00)
[2021-02-11 01:47] LABS: African American GFR (CKD) 73.6 (60.0-200.0); Albumin 4.6 g/dL (3.80-4.90); Albumin/Globulin Ratio 2.3 (1.60-3.17); Anion Gap 11.7 mmol/L (4.00-12.00); Calcium 9.6 mg/dL (8.7-10.3); Carbon Dioxide 21.3 mmol/L (21.6-31.8); Chol/HDL Ratio 4.68; Non-African American GFR(CKD) 63.5 (60.0-200.0); Potassium 4.6 mmol/L (3.5-5.5); Total Bilirubin 0.6 mg/dL (0.2-1.2); Total Protein 6.6 g/dL (6.2-8.2)
[2021-02-11 01:54] LABS: Prostate Specific Antigen 0.7 ng/mL (0.0-4.5)
== END | disposition home or self-care (01) ==
LOC: LABWHC1 10:55
PROVIDERS: ATTEND Family Medicine
DX: I12.9 Hypertensive chronic kidney disease with stage 1 through stage 4 chronic kidney disease, or unspecified chronic kidney disease (principal); N18.30 Chronic kidney disease, stage 3 unspecified; E78.2 Mixed hyperlipidemia
CPT/HCPCS: 36415; 80053; 80061; 82550; 84153; 84443; 85025

== ENCOUNTER → 2024-02-10 | Outpatient (CLI) | payer MEDICARE ==
--- NOTE | 2024-02-10 12:15 | XR ---
EXAMINATION TYPE: XR chest 2V DATE OF EXAM: 02/10/2024 COMPARISON: 01/10/19 HISTORY: 68-year-old male [id number] SOB, COPD TECHNIQUE: Frontal and lateral views FINDINGS: Heart normal size. Aorta and pulmonary vasculature within normal limits. Hyperinflation. DISH mid and lower thoracic spine. No consolidation or pleural effusion. IMPRESSION: COPD. No acute process seen.
== END | disposition home or self-care (01) ==
LOC: RADXRYALE 10:43
PROVIDERS: ATTEND Family Medicine
DX: J44.1 Chronic obstructive pulmonary disease with (acute) exacerbation (principal)
CPT/HCPCS: 71046